=== PATIENT | male | born 1965 | race Caucasian/White ===

== ENCOUNTER 2019-12-16 10:29 | Emergency (ER) | payer OTHER, SELFPAY ==
--- NOTE | ~2019-12-16 | XR_ITS ---
EXAMINATION: XR tibia fibula RT 2V DATE: 12/16/2019 10:50 INDICATION: Right lower leg injury and pain. TECHNIQUE: 2 views of right tibia and fibula were obtained. COMPARISON: None. FINDINGS: Bone alignment is normal. No fracture. Joint spaces are well maintained. IMPRESSION: 1. Normal right tibia and fibula. Reviewed, dictated and finalized at location A.
[2019-12-16 10:39] VITALS: BP 166/108; PULSE 89; RESP 20; TEMP 36.3; O2SAT 99
--- NOTE | 2019-12-16 10:39 | ED.LOWEXIN ---
HPI - Extremity Injury (Lower) General Chief Complaint: Extremity Injury, Lower Stated Complaint: INJURED R LEG Time Seen by Provider: 12/16/19 10:50 Source: patient and RN notes reviewed Mode of arrival: ambulatory Limitations: no limitations History of Present Illness HPI Narrative: 54-year-old male presents with concern for right lower leg pain, swelling. Reports 2 days ago a pallet fell on his leg while at work causing an abrasion to the lateral aspect of the lower leg. He denies any intervention for his symptoms. Reports lateral leg pain with weightbearing. MD complaint: leg injury Related Data Allergies Allergy/AdvReac Type Severity Reaction Status Date / Time No Known Allergies Allergy Verified 12/16/19 10:44 Review of Systems Review of Systems: Narrative: CONSTITUTIONAL: Denies malaise, chills, sweats, or fever. CARDIOVASCULAR: Denies chest pain, palpitations RESPIRATORY: Denies cough or dyspnea. SKIN: Reports abrasion to the lateral right lower leg MUSCULOSKELETAL: Reports right lower leg pain, swelling NEUROLOGIC: Denies numbness, weakness All systems reviewed & are unremarkable except as noted in HPI and below PMFSH Comments At time of signature, agree with nursing past medical, surgical, social and family history. There is no relevant family history pertinent to the presenting complaint Exam Narrative: Exam Narrative: GENERAL: Well-appearing, well-nourished, and in no acute distress. HEAD: Normocephalic, atraumatic. EYES: PERRLA, conjunctivae clear NECK: Supple. CHEST: Speaks in full sentences. No respiratory distress. HEART: Regular rate and rhythm. Normal and equal peripheral pulses. EXTREMITIES: Right lower leg, ankle has normal strength and sensation, normal range of motion. Moderate ankle edema and mild ecchymosis. Mild lower leg edema, erythema, warmth consistent with cellulitis. 5/5 strength with ankle flexion and extension. Normal sensation with sensitivity to light touch and pain. No point tenderness. No open wounds, no skin tenting, no devitalized tissue or atrophy, no trophic changes, no obvious deformity, alignment normal, nearby joints and structures intact. Distal pulses palpable and equal bilaterally, skin warm, dry, pink. Capillary refill less than 3 seconds. SKIN: Warm, dry, no rash. NEURO: Alert and oriented x3. PSYCH: Normal mood and affect Course Course Emergency Course: Patient is aware of diagnosis, understands and agrees to treatment plan. Anticipatory guidance given. Patient agrees to follow-up as directed and is aware of reasons to seek care at the emergency department. Portions of this record may have been created with voice recognition software Vital Signs Vital signs: Vital Signs Temperature 97.4 F L 12/16/19 10:39 Pulse Rate 89 12/16/19 10:39 Respiratory Rate 20 12/16/19 10:39 Blood Pressure 166/108 H 12/16/19 10:39 Pulse Oximetry 99 12/16/19 10:39 Temperature 97.4 F L 12/16/19 10:39 Pulse Rate 89 12/16/19 10:39 Respiratory Rate 20 12/16/19 10:39 Blood Pressure 166/108 H 12/16/19 10:39 Pulse Oximetry 99 12/16/19 10:39 Reviewed. Pt has been instructed to follow up with his primary care provider within the next week regarding his elevated blood pressure today. MDM - Extremity Injury (Lower) MDM Narrative Medical decision making narrative: Exam findings and imaging show no acute concerns or changes; patient is non-toxic appearing and is in no distress. Patient is appropriate for outpatient treatment and follow-up. Differential Diagnosis Differential diagnosis: Likely ankle sprain and strain, ankle fracture and other (Tib-fib fracture, cellulitis, abrasion, contusion, soft tissue injury) Imaging Data My impression: Images reviewed, interpreted by radiologist, agree, see report. Radiologist's impression: EXAMINATION: XR tibia fibula RT 2V DATE: 12/16/2019 10:50 INDICATION: Right lower leg injury and pain. TECHNIQUE: 2 views of right tibia a
== END 2019-12-16 11:10 | disposition home or self-care (01) ==
PROVIDERS: Emergency Provider Nurse Practitioner; PCP Internal Medicine
DX: L03.116 Cellulitis of left lower limb (principal)
CPT/HCPCS: 73590; 99213; G0463